=== PATIENT | male | born 1980 | race Caucasian/White ===

== ENCOUNTER 2019-01-02 11:54 | Inpatient (IN) | payer OTHER ==
[~2019-01-02] VITALS: Ht 172.7 cm; Wt 122.7 kg
[2019-01-02 13:31] LABS: BASO # 0.1 10^3/uL (0.0-0.2); BASO % 0.3 % (0.0-1.0); EOS % 0.1 % (0.0-3.0); HEMATOCRIT 43.4 % (42.0-52.0); HEMOGLOBIN 14.7 g/dl (13.5-17.5); LYMPH # 2.3 10^3/uL (1.5-4.5); LYMPH % 12.1 % (24.0-44.0); MEAN CORPUSCULAR HEMOGLOBIN 28.7 pg (27.0-33.0); MEAN CORPUSCULAR HGB CONC 33.9 g/dl (32.0-36.5); MEAN CORPUSCULAR VOLUME 84.8 fl (80.0-96.0); MONO # 1.9 10^3/uL (0.0-0.8); MONO % 10.2 % (0.0-5.0); NEUTROPHILS # 14.5 10^3/uL (1.8-7.7); NEUTROPHILS % 76.7 % (36.0-66.0); PLATELET COUNT, AUTOMATED 241 10^3/uL (150-450); RED BLOOD COUNT 5.12 10^6/uL (4.30-6.10)
[2019-01-02 13:58] LABS: ALBUMIN 3.2 GM/DL (3.2-5.2); ALT/SGPT 134 U/L (12-78); BILIRUBIN,DIRECT 0.5 MG/DL (0.0-0.2); BILIRUBIN,TOTAL 1.1 MG/DL (0.2-1.0); BLOOD UREA NITROGEN 14 MG/DL (7-18); CALCIUM LEVEL 9.5 MG/DL (8.5-10.1); CARBON DIOXIDE LEVEL 30 MEQ/L (21-32); CHLORIDE LEVEL 98 MEQ/L (98-107); CREATININE FOR GFR 0.95 MG/DL (0.70-1.30); GLOMERULAR FILTRATION RATE > 60.0 (>60); GLUCOSE, FASTING 102 MG/DL (70-100); LIPASE 70 U/L (73-393); POTASSIUM SERUM 3.8 MEQ/L (3.5-5.1); SODIUM LEVEL 137 MEQ/L (136-145); TOTAL PROTEIN 7.3 GM/DL (6.4-8.2)
[2019-01-02] MEDS ORDERED: NS 1,000 ML IV ONE (15:00)
[2019-01-02] MEDS ORDERED: MORPHINE 4 MG/ML 1ML VIAL/SYRINGE (J2270) IV ONE (15:00)
[2019-01-02] MEDS ORDERED: ISOVUE-370 76% 100ML VIAL (Q9967) As Ordered ONE (15:50)
--- NOTE | 2019-01-02 16:25 | REP ---
CT of the abdomen and pelvis with IV contrast, without bowel contrast: There are no comparisons. There is an appendicolith. The appendix is diffusely distended. There is periappendiceal inflammation. There is no focal fluid collection to suggest perforation or abscess. There is no ascites. There is no pneumoperitoneum. The findings are compatible with acute appendicitis. The visualized lung rdz are unremarkable. There is diffuse hepato steatosis. The liver is otherwise unremarkable. The gallbladder, pancreas, spleen, adrenals, kidneys, abdominal aorta, bowel and mesentery are otherwise unremarkable. Pelvis: The bladder is unremarkable. There is no ascites or adenopathy. Impression: Acute appendicitis as described. Electronically Signed by Dariel Angel MD 01/02/2019 04:16 P
[2019-01-02] MEDS ORDERED: PIPERACILLIN/TAZOBACTAM SOD 3.375 GM in D5W MINI-BAG PLUS 50 ML IV ONE (16:45)
[2019-01-02] MEDS ORDERED: ONDANSETRON 4MG/2ML VIAL (J2405) IV PRN (17:30)
[2019-01-02] MEDS ORDERED: MORPHINE 4 MG/ML 1ML VIAL/SYRINGE (J2270) IV PRN (17:30)
[2019-01-02] MEDS: LR 1,000 ML IV SCH (18:00)
[2019-01-02] MEDS ORDERED: BUPIVACAINE HCL 0.25% 30 ML VIAL As Ordered ONE (18:08)
[2019-01-02] MEDS ORDERED: ROCURONIUM BROMIDE 50 MG/5 ML VIAL As Ordered ONE ×2 (18:17→19:13)
[2019-01-02] MEDS ORDERED: LIDOCAINE 2% INJ 100 MG/5 ML SDV (FOR ANES.) As Ordered ONE (18:17)
[2019-01-02] MEDS ORDERED: PROPOFOL 200 MG/20 ML VIAL As Ordered ONE (18:17)
[2019-01-02] MEDS ORDERED: MIDAZOLAM INJ 2 MG/2 ML VIAL (J2250) As Ordered ONE (18:18)
[2019-01-02] MEDS ORDERED: fentaNYL 100 MCG/2 ML INJECTION (J3010) As Ordered ONE ×2 (18:18→19:25)
[2019-01-02] MEDS ORDERED: dexameTHASONE 4 MG/ML 1ML VIAL (J1100) As Ordered ONE (19:09)
[2019-01-02] MEDS ORDERED: KETOROLAC 60 MG/2 ML VIAL (J1885) As Ordered ONE (19:10)
[2019-01-02] MEDS ORDERED: ONDANSETRON 4MG/2ML VIAL (J2405) As Ordered ONE (19:10)
[2019-01-02] MEDS ORDERED: GLYCOPYRROLATE INJ 0.2 MG/ML 2 ML VIAL As Ordered ONE ×2 (19:10→20:36)
[2019-01-02] MEDS ORDERED: NEOSTIGMINE 10 MG/10 ML VIAL (J2710) As Ordered ONE (19:11)
[2019-01-02] MEDS ORDERED: ACETAMINOPHEN TAB 650MG DOSE (2X325MG) PO PRN (21:00)
[2019-01-02] MEDS ORDERED: HYDROMORPHONE HCL 0.5 MG/ 0.5 ML SYRINGE (J1170 PER 1) IV PRN (21:30)
[2019-01-02] MEDS ORDERED: METOCLOPRAMIDE INJ 10MG/2ML VIAL (J2765) IV PRN (21:30)
[2019-01-02] MEDS ORDERED: fentaNYL 100 MCG/2 ML INJECTION (J3010) IV PRN (21:30)
[2019-01-02] MEDS ORDERED: NORCO, ANEXSIA 5/325MG TABLET (HYDROcodone/ACETAMINOPHEN) PO PRN (21:30)
[2019-01-02 21:45] VITALS: BP 168/87
[2019-01-02 22:30] VITALS: BP 176/86
[2019-01-02 23:00] VITALS: BP 165/85
[2019-01-02] MEDS: PIPERACILLIN/TAZOBACTAM SOD 3.375 GM in D5W MINI-BAG PLUS 50 ML IV SCH (23:29)
[2019-01-02] MEDS: NORCO, ANEXSIA 5/325MG TABLET (HYDROcodone/ACETAMINOPHEN) PO PRN (23:54)
[2019-01-03] VITALS (9 sets, daily range): BP systolic 120–155; BP diastolic 62–93
[2019-01-03] MEDS: KETOROLAC 30 MG/ML VIAL (J1885) IV PRN ×2 (01:09→10:07)
[2019-01-03] MEDS: LR 1,000 ML IV SCH ×2 (04:31→07:56)
[2019-01-03] MEDS: PIPERACILLIN/TAZOBACTAM SOD 3.375 GM in D5W MINI-BAG PLUS 50 ML IV SCH ×3 (06:01→18:20)
[2019-01-03] MEDS: NORCO, ANEXSIA 5/325MG TABLET (HYDROcodone/ACETAMINOPHEN) PO PRN (08:03)
[2019-01-03 08:17] LABS: BASO % 0.2 % (0.0-1.0); EOS % 0.1 % (0.0-3.0); HEMATOCRIT 38.1 % (42.0-52.0); LYMPH # 1.6 10^3/uL (1.5-4.5); LYMPH % 10.2 % (24.0-44.0); MEAN CORPUSCULAR HEMOGLOBIN 29.2 pg (27.0-33.0); MEAN CORPUSCULAR HGB CONC 34.1 g/dl (32.0-36.5); MEAN CORPUSCULAR VOLUME 85.6 fl (80.0-96.0); MONO # 1.3 10^3/uL (0.0-0.8); MONO % 8.4 % (0.0-5.0); NEUTROPHILS # 12.5 10^3/uL (1.8-7.7); NEUTROPHILS % 80.6 % (36.0-66.0); PLATELET COUNT, AUTOMATED 220 10^3/uL (150-450); RED BLOOD COUNT 4.45 10^6/uL (4.30-6.10); WHITE BLOOD COUNT 15.6 10^3/uL (4.0-10.0)
--- NOTE | 2019-01-03 08:39 | RO ---
DATE OF PROCEDURE: 01/02/2019 PREOPERATIVE DIAGNOSIS: Acute appendicitis. POSTOPERATIVE DIAGNOSIS: Acute gangrenous appendicitis with abscess. PROCEDURE PERFORMED: Laparoscopic appendectomy with drainage and debridement of abscess. SURGEON: Dr. Kadeem Bishop EXPLOSIVES WORKER: None. ANESTHESIA: General. INDICATIONS FOR PROCEDURE: The patient is a 38-year-old man who was referred to the [facility] emergency department from the [facility] with a complaint of right lower quadrant pain. He reported onset of right lower quadrant pain four days earlier. Patient's exam, labs and CT scan were all consistent with appendicitis. The degree of inflammation on CT and the duration of his symptoms is concerning for possible perforation. He is now for a laparoscopic appendectomy. OPERATIVE PROCEDURE: The patient was brought to the operating room and placed on the table in a supine position. He was placed under general endotracheal anesthesia. The patient's abdomen was prepped and draped in a sterile fashion. 0.25% Marcaine was infiltrated at the trocar sites as needed. A short supraumbilical midline incision was made and deepened through the subcutaneous tissues to the fascia which was opened along the midline. The peritoneum was opened bluntly and a Cedeno cannula was inserted. The abdomen was inflated with carbon dioxide gas and the laparoscope was placed. The patient was tilted to a slight Trendelenburg position. Inspection showed a normal-appearing liver. There may have been some fatty infiltration suggested. The fundus of the gallbladder was seen and appeared normal. In the right lower quadrant, there was some small bowel adherent to the anterior abdominal wall. Two 5 mm trocars were placed in the left lower quadrant, one slightly below the level of the umbilicus and one approximately 12 cm further inferior. Graspers were inserted. The inflammatory attachments of the small bowel to the anterior abdominal wall were gently broken apart. As this proceeded, a pocket of obvious pus was entered and the suction inspector missile was used to evacuate this cavity and then gently irrigate this area to remove as much contamination as possible. As the small bowel was peeled away from the anterior abdominal wall, the gangrenous appendix was identified. This was surrounded by some purulent fluid and this was also suctioned and irrigated. The pelvis was irrigated as well. The adhesions were all broken apart bluntly. On further inspection, the appendix was primarily covered by an approximately 15-20 cm segment of the distal ileum. The terminal ileum extended into the pelvis and then looped back up from the pelvis and it was this segment of the small bowel coming up out of the pelvis that had covered the inflamed appendix and become part of the wall of the abscess developing around this. This loop of bowel was gently broken apart from the inflammatory tissues. The cecum was clearly identified as was the ascending colon. The midportion of the appendix was clearly gangrenous and perforated. The harmonic scalpel was used to divide the inflammatory tissues of the mesoappendix working back toward the base of the appendix. As the base of the appendix was exposed, it was clear that there was some tissue that was healthy enough to consider a stapled closure of the appendiceal stump. Therefore, the dissection proceeded to free the base of the appendix and the lateral wall of the cecum. The appendix was stapled at its juncture with the cecum using the 45 mm endoscopic linear cutter with a green load. The appendix was then placed in an Endopouch. The right lower quadrant, paracolic gutter and pelvis were then copiously irrigated with saline. The patient was tilted to a reverse Trendelenburg position to promote drainage of fluid from the paracolic gutter down into the pelvis for further irrigation. Inspection showed no evidence of any bleeding. At this point, I elected to place a Robin drain into the area of the right paracolic gutter and the area where the abscess had been developing. Local anesthesia was infiltrated far laterally in the right midabdomen. A small skin incision was made and a hemostat was inserted through the abdominal wall into the abdomen. A 19-Latvian Robin drain was inserted through the supraumbilical port and the drain was grasped with the hemostat and pulled through the abdominal wall. The drain was positioned extending down along the lateral aspect of the ascending colon through the area of the greatest inflammation and then down into the pelvis. At this point, the abdomen was deflated and the trocars were removed. The appendix was recovered through the supraumbilical site after extending the fascial incision slightly. The appendix was sent for permanent pathology. The fascia at the supraumbilical site was closed with interrupted #2-0 Vicryl sutures. The skin incisions were all closed with buried #5-0 Vicryl. The drain was sutured to the skin with a #2-0 silk and a chlorhexidine gluconate OpSite was placed at the drain site. The drain was connected to a Mohsen-Lozano bulb. The patient tolerated the procedure well without apparent complication. He was awakened in the operating room, extubated and moved to the recovery room in stable condition. VERONICA
[2019-01-03] MEDS ORDERED: INFLUENZA QUADRIVALENT PF VACCINE 0.5ML SYRINGE (90686) IM ONE (09:00)
[2019-01-04] MEDS: PIPERACILLIN/TAZOBACTAM SOD 3.375 GM in D5W MINI-BAG PLUS 50 ML IV SCH ×5 (00:45→23:55)
[2019-01-04 02:00] VITALS: BP 156/99
[2019-01-04 06:00] VITALS: BP 138/90
--- NOTE | 2019-01-04 07:54 | IPN ---
DATE: 01/03/2019 HISTORY: The patient is now approximately 19 hours postop from a laparoscopic appendectomy for gangrenous appendicitis with early abscess development. A drain was left in the appendiceal area postop. He was started on clear liquids which he has tolerated well. He reports that he has been up ambulating and has had some flatus and is voiding without difficulty. VITAL SIGNS: Vital signs show that he has been afebrile since surgery. Pulse has ranged from 118 down to 86 and he is trending lower over the course of the day. Blood pressure is good. INTAKE AND OUTPUT: Intake and output shows that he had had 1900 mL orally at the time of his evaluation today. His urine output is good and his drain had about of 150 mL out during the day. PHYSICAL EXAMINATION: The patient is lying quietly on the hospital bed. He is alert and responds appropriately. Heart exam shows a regular rhythm and the lungs are clear. The abdomen is mildly protuberant. He has bowel sounds present. His dressings show a single small spot of staining at the umbilical dressing. The abdomen is otherwise generally soft. The drain in the right lateral abdomen has a minimal amount of serosanguineous fluid in the container. Laboratory studies from this morning include a white count of 16,000, hemoglobin of 13, hematocrit of 38 and platelet count of 220,000. His differential count shows 81% neutrophils, 10% lymphocytes and 8% monocytes. IMPRESSION: The patient is doing well now about 19 hours postop from appendectomy for gangrenous appendicitis. He has remained afebrile. His white count is down slightly from presentation. PLAN: The patient will be continued on his Zosyn every 6 hours. He is encouraged to be up out of bed. I will discontinue his sequential stockings and his IV fluid. He will be advanced to a regular diet. We will keep him on inpatient status until his white count returns to normal and he remains afebrile and then consider discharge home on oral antibiotics.
[2019-01-04 08:06] LABS: BASO # 0.1 10^3/uL (0.0-0.2); BASO % 0.5 % (0.0-1.0); EOS # 0.2 10^3/uL (0.0-0.50); EOS % 1.8 % (0.0-3.0); HEMATOCRIT 40.1 % (42.0-52.0); HEMOGLOBIN 13.5 g/dl (13.5-17.5); LYMPH # 1.8 10^3/uL (1.5-4.5); LYMPH % 13.8 % (24.0-44.0); MEAN CORPUSCULAR HEMOGLOBIN 28.8 pg (27.0-33.0); MEAN CORPUSCULAR HGB CONC 33.7 g/dl (32.0-36.5); MEAN CORPUSCULAR VOLUME 85.5 fl (80.0-96.0); MONO # 1.3 10^3/uL (0.0-0.8); MONO % 10.2 % (0.0-5.0); NEUTROPHILS # 9.3 10^3/uL (1.8-7.7); NEUTROPHILS % 72.3 % (36.0-66.0); PLATELET COUNT, AUTOMATED 268 10^3/uL (150-450); RED BLOOD COUNT 4.69 10^6/uL (4.30-6.10); WHITE BLOOD COUNT 12.8 10^3/uL (4.0-10.0)
[2019-01-04 10:00] VITALS: BP 130/88
[2019-01-04 14:00] VITALS: BP 136/80
--- NOTE | 2019-01-04 14:25 | IPN ---
DATE: 01/04/2019 HISTORY: The patient is now postop day #2 from a laparoscopic appendectomy for gangrenous appendicitis with an early abscess. He underwent appendectomy with placement of a drain into the right lower quadrant. He has remained on Zosyn for antibiotic coverage. His diet was advanced to regular yesterday and he has tolerated this well. He indicates he has been up walking quite a bit in the hallway and is voiding well and having flatus. Vital signs show that he has been afebrile over the past 24 hours. His pulse is generally in the 80s and 90s and his blood pressure is good. Intake and output shows that yesterday he had 4900 in with 1300 recorded out. He had a 160 mL from his drain yesterday and 80 mL recorded this morning. PHYSICAL EXAMINATION: The patient is lying quietly on the bed and appears fairly comfortable. He is alert and oriented. Heart and lung exams are unremarkable. The abdomen is mildly obese. He has bowel sounds present. The abdomen is soft and he still has some tenderness in the right lower quadrant, as would not be surprising. LABORATORY STUDY: He had a CBC this morning that shows a white count of 12.8 with a hemoglobin of 13, hematocrit of 40 and platelet count of 268,000. Differential count shows 72% neutrophils, 14% lymphocytes and 10% monocytes. Pathology shows a gangrenous appendicitis with perforation. IMPRESSION: Patient is doing well now postop day #2 from treatment for his gangrenous appendicitis with abscess. His drain output is primarily serous at this point, though it is still slightly pink. His white cell count is down to 12-13,000. PLAN: The patient will be continued on inpatient status on IV Zosyn for now. We will recheck his CBC in the morning and follow his drain output. He may be ready for discharge tomorrow if his white count has returned to normal. I would discharge him home on oral antibiotics for another 5 days or so.
[2019-01-04] MEDS: IBUPROFEN 600 MG TAB PO PRN (17:58)
[2019-01-04 18:00] VITALS: BP 144/88
[2019-01-04 22:00] VITALS: BP 148/91
[2019-01-05 02:00] VITALS: BP 141/82
[2019-01-05] MEDS: IBUPROFEN 600 MG TAB PO PRN (05:12)
[2019-01-05] MEDS: PIPERACILLIN/TAZOBACTAM SOD 3.375 GM in D5W MINI-BAG PLUS 50 ML IV SCH ×2 (05:17→12:40)
[2019-01-05 06:00] VITALS: BP 150/86
[2019-01-05 06:07] LABS: BASO % 0.4 % (0.0-1.0); EOS # 0.4 10^3/uL (0.0-0.50); EOS % 4.1 % (0.0-3.0); HEMATOCRIT 37.7 % (42.0-52.0); HEMOGLOBIN 12.7 g/dl (13.5-17.5); MEAN CORPUSCULAR HEMOGLOBIN 28.5 pg (27.0-33.0); MEAN CORPUSCULAR HGB CONC 33.7 g/dl (32.0-36.5); MEAN CORPUSCULAR VOLUME 84.7 fl (80.0-96.0); MONO % 9.7 % (0.0-5.0); NEUTROPHILS # 6.9 10^3/uL (1.8-7.7); NEUTROPHILS % 64.5 % (36.0-66.0); PLATELET COUNT, AUTOMATED 258 10^3/uL (150-450); RED BLOOD COUNT 4.45 10^6/uL (4.30-6.10); WHITE BLOOD COUNT 10.7 10^3/uL (4.0-10.0)
[2019-01-05] MEDS ORDERED: OXYMETAZOLINE NASAL SPRAY (AFRIN) SCH ×3 (09:00→21:00)
[2019-01-05 10:00] VITALS: BP 143/87
[2019-01-05] MEDS ORDERED: AUGM500T34 PO (13:18)
== END 2019-01-05 14:35 | disposition home or self-care (01) | DRG 225 ==
LOC: M ED 11:54 → M SDC 17:24 → M MSPAV 21:39
PROVIDERS: ADMIT Surgery; ATTEND Surgery
PROC: 0DTJ4ZZ Resection of Appendix, Percutaneous Endoscopic Approach (ICD-10-PCS; principal; 2019-01-02 17:33)
DX: K35.33 Acute appendicitis with perforation, localized peritonitis, and gangrene, with abscess (principal)